=== PATIENT | female | born 1945 | race Caucasian/White ===

== ENCOUNTER → 2021-01-02 11:07 | Outpatient (BNVA) | payer MEDICARE, SELFPAY | PROVIDERS: PCP Internal Medicine; Visit Provider Orthopaedic Surgery | DX: Z13.89 Encounter for screening for other disorder (principal) | CPT/HCPCS: Q3014 ==

== ENCOUNTER 2021-02-14 13:25 | Outpatient (REF) | payer MEDICARE, SELFPAY ==
--- NOTE | ~2021-02-14 | FL_ITS ---
PROCEDURE: XR ARTHROGRAM HIP, RIGHT CLINICAL INFORMATION: Significant right hip pain. COMPARISON: None TECHNIQUE: Following explaining right hip arthrogram procedure, benefits and risk, a written consent was obtained. Patient was placed supine on fluoroscopy table and anterior aspect of right hip was cleaned and draped in the usual sterile manner. 1% lidocaine was injected at puncture site. 22-gauge spinal needle was then advanced from the skin site into the joint space along the lateral margin of right femoral neck and 2 mL of nonionic contrast was injected and a single image was obtained. Subsequently 3 mL of Xylocaine epinephrine, 3 mL of 0.25% Marcaine and 80 mg of Depo-Medrol was injected into the joint space and needle withdrawn. Complete hemostasis achieved at puncture site. Sterile Band-Aid applied postprocedure. Patient tolerated procedure extremely well. FINDINGS: On single image obtained through the right hip there is significant loss of right hip joint space with subchondral acetabular cystic change. There is no soft tissue calcification. There is intracapsular contrast opacifying the joint space. Successful fluoroscopy-guided right steroid injection performed without immediate complications. FLUOROSCOPY TIME: 1.0 minutes. DOSE AREA PRODUCT: 11.230 uGy-m2 (microgray-meter squared). FL/FL arthrogram hip RT IMPRESSION: Successful fluoroscopy-guided right hip steroid injection performed without immediate complications.
== END 2021-02-14 13:26 | disposition home or self-care (01) ==
LOC: HO.XRAY 13:25
PROVIDERS: PCP Internal Medicine; Visit Provider Orthopaedic Surgery
DX: M16.11 Unilateral primary osteoarthritis, right hip (principal)
CPT/HCPCS: 27093; 73525

== ENCOUNTER → 2021-03-06 09:56 | Outpatient (BNVA) | payer MEDICARE, SELFPAY | PROVIDERS: Visit Provider Orthopaedic Surgery | DX: M16.11 Unilateral primary osteoarthritis, right hip (principal) | CPT/HCPCS: 99212 ==

== ENCOUNTER → 2021-05-01 12:51 | Outpatient (BNVA) | payer MEDICARE, SELFPAY | PROVIDERS: Visit Provider Orthopaedic Surgery ==